=== PATIENT | male | born 1955 | race Two or more races ===

== ENCOUNTER 2017-01-02 06:50 | Day surgery (SDC) | payer BC ==
--- NOTE | ~2017-01-02 | EGD ---
EGD REPORT [facility] [address] [address] NAME: NAYELY ERNST : 59 STATUS : REG [facility]#: [id number] AGE: 61 ADM/REG DATE : 01/02/17 MR#: [id number] REPORT SERV DATE: 01/02/17 DICTATED BY: MILADY MURRAY DATE: 01/02/17 REPORT STATUS : Draft TRANSCRIBED BY: [employer] DATE: 01/02/17 Endoscopy Center Patient Name: Nayely Ernst Date of : 1955 Attending MD: MILADY MURRAY MD Procedure Date No Time: 01/02/2017 Procedure: Upper GI endoscopy Indications: Therapeutic procedure, Esophageal dysphagia Medicines: Sedation Required Anesthesia Staff Assistance Complications: No immediate complications. Estimated blood loss: None. Procedure: After obtaining informed consent, the endoscope was passed under direct vision. Throughout the procedure, the patient's blood pressure, pulse, and oxygen saturations were monitored continuously. The GIF [id number] was introduced through the mouth, and advanced to the second part of duodenum. The upper GI endoscopy was accomplished without difficulty. The patient tolerated the procedure well. Findings: A hypertonic lower esophageal sphincter was found. Area was successfully injected with 100 units botulinum toxin. Food was found in the lower third of the esophagus. A few localized, small non-bleeding erosions were found in the gastric antrum. There were no stigmata of recent bleeding. A few diffuse erosions without bleeding were found in the duodenal bulb. Impression: - Hypertonic lower esophageal sphincter. Injected with botulinum toxin. - Food in the lower third of the esophagus. - Non-bleeding erosive gastropathy. - Duodenal erosions without bleeding. Recommendation: - Discharge patient to home. - Clear liquid diet today. - Continue present medications. Procedure Code(s): --- Professional --- 66663, Esophagogastroduodenoscopy, flexible, transoral; with directed submucosal injection(s), any substance Diagnosis Code(s): --- Professional --- K22.8, Other specified diseases of esophagus K26.9, Duodenal ulcer, unspecified as acute or chronic, without hemorrhage or perforation EGD REPORT [facility] [address] [place] [address] [place] [address] NAME: NAYELY ERNST : 59 [place]US [place] [facility] [place] [id number] AGE: 61 ADM/REG DATE : 01/02/17 MR#: [id number] REPORT SERV DATE: 01/02/17 DICTATED BY: MILADY MURRAY. DATE: 01/02/17 REPORT STATUS : Draft TRANSCRIBED BY: [employer] DATE: 01/02/17 R13.14, Dysphagia, pharyngoesophageal phase CPT copyright 2013 [employer]. All rights reserved. The codes documented in this report are preliminary and upon verification engineer review may be revised to meet current compliance requirements. MILADY MURRAY MD 01/02/2017 9:33 AM This report has been signed electronically. Number of Addenda: 0 Note Initiated On: 01/02/2017 9:13 AM Scope Withdrawal Time 0 hours 0 minutes 0 seconds [address] [facility] [place] [address]
[~2017-01-02 06:50] MED LIST: AMARYL2 PO; LISINOPRIL40 MG PO; MIRALAXPKT PO; MOMUD PO; NIFEDIAC CC60 MG PO; VYTORIN 10/40 T1 TAB PO
== END 2017-01-02 23:59 | disposition home or self-care (01) ==
LOC: DMU 06:50
PROVIDERS: Internal Medicine Gastroenterology
PROC: 3E0G8GC Introduction of Other Therapeutic Substance into Upper GI, Via Natural or Artificial Opening Endoscopic (ICD-10-PCS; principal; 2017-01-02 09:30)
DX: K22.8 Other specified diseases of esophagus (principal); I10 Essential (primary) hypertension; K31.9 Disease of stomach and duodenum, unspecified; K26.9 Duodenal ulcer, unspecified as acute or chronic, without hemorrhage or perforation; E11.9 Type 2 diabetes mellitus without complications; R13.14 Dysphagia, pharyngoesophageal phase; K22.0 Achalasia of cardia; K21.9 Gastro-esophageal reflux disease without esophagitis; G47.33 Obstructive sleep apnea (adult) (pediatric); Z95.1 Presence of aortocoronary bypass graft
CPT/HCPCS: 82962; 94640; J0585; J2930